=== PATIENT | male | born 1935 | race Caucasian/White ===

== ENCOUNTER 2017-12-03 20:53 | Emergency (ER) | payer OTHER, MEDICARE ==
--- OUTSIDE RECORDS SUMMARY | 2017-12-03 20:56 | XMS REPORT | Clinical Summary ---
:1935 Author Organization [facility] Address [address] [place] [address] Phone Care Team Providers Name Role Phone Unavailable Primary Care Provider Unavailable Allergies Active Allergy Reactions Severity Noted Date Comments Hydromorphone 02/03/2017 Latex 02/03/2017 Penicillins 02/02/2017 Rifampin 02/03/2017 Sulfa (Sulfonamide Antibiotics) 02/03/2017 Current Medications Prescription Sig. Disp. Refills Start Date End Date Status citalopram (CELEXA) Take 20 mg by Active 20 MG tablet mouth every morning. mirtazapine Take 30 mg by Active (REMERON) 30 MG mouth tablet nightly. predniSONE Take 5 mg by Active (DELTASONE) 5 MG mouth 3 tablet (three) times daily. LORazepam (ATIVAN) Take 1 mg by Active 1 MG tablet mouth nightly. ferrous sulfate 325 Take 325 mg Active (65 FE) MG tablet by mouth daily with breakfast. metoprolol Take 1 tablet 60 tablet 0 02/05/2017 02/05/2018 Active (TOPROL-XL) 25 MG (25 mg total) 24 hr tablet by mouth 2 (two) times daily. aspirin 81 MG EC Take 1 tablet 30 tablet 0 02/05/2017 02/05/2018 Active tablet (81 mg total) by mouth daily. atorvastatin Take 1 tablet 30 tablet 0 02/05/2017 02/05/2018 Active (LIPITOR) 80 MG (80 mg total) tablet by mouth daily. lisinopril Take 1 tablet 30 tablet 0 02/05/2017 02/05/2018 Active (PRINIVIL,ZESTRIL) (5 mg total) 5 MG tablet by mouth daily. atenolol (TENORMIN) Take 25 mg by 02/05/2017 Discontinued 25 MG tablet mouth every morning. ticagrelor Take 1 tablet 60 tablet 1 02/05/2017 03/07/2017 (BRILINTA) 90 mg (90 mg total) Tab tablet by mouth 2 (two) times daily for 30 days. famotidine (PEPCID) Take 1 tablet 60 tablet 0 02/05/2017 03/07/2017 20 MG tablet (20 mg total) by mouth 2 (two) times daily for 30 days. 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 ([facility]) History of lower GI bleeding 02/04/2017 Diverticulosis of large intestine 02/04/2017 PMR (polymyalgia rheumatica) ([facility]) 02/04/2017 ST elevation [place] (STEMI) ([facility]) 02/02/2017 STEMI (ST elevation myocardial infarction) ([facility]) 02/02/2017 Encounters Date Type Specialty Care Team Description 02/02/2017 - Hospital Encounter Cardiology Carter Monterroso, ST elevation 02/05/2017 myocardial Claudio, Mayank infarction (STEMI), Mohsen unspecified artery ([facility]) (Primary Dx);ST elevation myocardial infarction involving left anterior descending (LAD) coronary artery ([facility]);Chest pain, unspecified type;SOB (shortness of breath);Coronary artery disease involving cher-ae heights heart, angina presence unspecified, unspecified vessel or lesion type;EKG abnormalities;ACS (acute coronary syndrome) ([facility]);Essential hypertension 02/02/2017 Orders Only General Internal Medicine 02/02/2017 Procedure Pass 02/02/2017 Surgery Carter Monterroso L CATH & PCI MD after 12/02/2016 Immunizations Name Dates Previously Given Next Due Pneumococcal Polysaccharide (Pneumovax) 02/03/2017 Social History Tobacco Use Types Packs/Day Years Used Date Never Assessed Sex Assigned at Date Recorded Not on file Last Filed Vital Signs Vital Sign Reading Time Taken Blood Pressure 126/60 02/05/2017 3:27 PM CDT Pulse 72 02/05/2017 3:27 PM CDT Temperature 36.8 C (98.2 F) 02/05/2017 3:27 PM CDT Respiratory Rate 18 02/05/2017 3:27 PM CDT Oxygen Saturation 95% 02/05/2017 3:27 PM CDT Inhaled Oxygen Concentration - - Weight 68.8 kg (151 lb 9.6 oz) 02/05/2017 7:13 AM CDT Height 172.7 cm (5' 8") 02/03/2017 3:45 PM CDT Body Mass Index 23.05 02/05/2017 7:13 AM CDT Plan of Treatment Not on file Implants Implanted Type Area Poultry Service Technician Device Identifier Expiration Model / Date Serial / Lot Synergy Stents- N/A: Bio[employer]one Therapeutic [id number] 06/05/2017 [id number] / Implanted: Qty: 1 on 02/02/2017 by Carter Monterroso MD Coronar Coronary [employer]ENTIFIC / y [id number] Synergy Stents- N/A: BioAxone Therapeutic [id number] 08/18/2017 [id number] / Implanted: Qty: 1 on 02/02/2017 by Carter Monterroso MD Coronar Coron[employer] / y [id number] Procedures Procedure Name Priority Date/Time Associated Diagnosis Comments L CATH & PCI 02/02/2017 3:10 PM CDT STEMI after 12/02/2016 Results VASCULAR DIAGRAM -SCAN (03/07/2017 1:20 PM)Only the most recent of2 resultswithin the time period is included.EKG-SCANNED (02/06/2017 11:37 AM) CARDIAC CATH REPORT - SCAN (02/06/2017 11:37 AM)RHYTHM STRIP - SCAN (02/06/2017 11:37 AM)CBC with platelet count + automated diff (02/05/2017 4:24 AM)Only the most recent of2 resultswithin the time period is included. Component Value Ref Range WBC 10.5 (H) 4.0 - 10.0 K/L RBC 4.32 4.20 - 5.80 M/L Hemoglobin 14.5 13.0 - 16.8 GM/DL Hematocrit 43.4 40.0 - 50.0 % MCV 100.0 (H) 82.0 - 98.0 fL MCH 33.6 (H) 27.0 - 33.0 pg MCHC 33.5 32.0 - 36.0 GM/DL RDW 12.7 10.3 - 14.2 % Platelets 185 150 - 430 K/CU MM MPV 6.4 (L) 6.5 - 10.5 fL nRBC 0 0 - 0 /100 WBC % Neutros 58 % % Lymphs 28 % % Monos 12 % % Eos 2 % % Baso 0 % # Neutros 6.11 1.80 - 8.00 K/L # Lymphs 2.89 1.48 - 4.50 K/L # Monos 1.22 0.00 - 1.30 K/L # Eos 0.22 0.00 - 0.50 K/L # Baso 0.05 0.00 - 0.20 K/L Specimen Performing Laboratory Blood - Arm, Right [address] [address] Narrative 0.00 Troponin I (02/05/2017 4:24 AM)Only the most recent of5 resultswithin the time period is included. Component Value Ref Range Troponin I 6.36 (HH) 0.00 - 0.03 ng/mL Specimen Performing Laboratory Blood - Arm, Right [address] [address] Narrative Effective 06/06/2014: Reference Range Change New: 0.00-0.03 Previous 0.00-0.15 Troponin I (TnI) levels must be interpreted in the context of the presenting symptoms and the clinical findings. Elevated TnI levels indicate myocardial damage, but are not specific for ischemic heart disease. Elevated TnI levels are seen in patients with other cardiac conditions (including myocarditis and congestive heart failure), and slight TnI elevations occur in patients with other conditions, including sepsis, renal failure, acidosis, acute neurological disease, and persistent tachyarrhythmia. CBC with platelet count + automated diff (02/05/2017 4:24 AM)Only the most recent of2 resultswithin the time period is included. Specimen Performing Laboratory Blood Narrative The following orders were created for panel order CBC with platelet count + automated diff. Procedure Abnormality Status --------- ------ CBC with platelet count ...[[id number]]AbnormalFinal result Please view results for these tests on the individual orders. Basic Metabolic Panel (02/05/2017 4:24 AM)Only the most recent of2 resultswithin the time period is included. Component Value Ref Range Sodium 138 136 - 145 meq/L Potassium 3.6 3.5 - 5.1 meq/L Chloride 106 98 - 107 meq/L CO2 23 22 - 29 meq/L BUN 14 7 - 21 mg/dL Creatinine 0.96 0.57 - 1.25 mg/dL Glucose 83 70 - 105 mg/dL Calcium 9.1 8.4 - 10.2 mg/dL EGFR 75Comment: ESTIMATED GFR IS NOT ACCURATE mL/min/1.73 sq m CREATININE CLEARANCE IN PREDICTING GLOMERULAR FILTRATION RATE. ESTIMATED GFR IS NOT APPLICABLE FOR DIALYSIS PATIENTS. Specimen Performing Laboratory Blood - Arm, Right [facility] [address] [address] PERIPHERAL VASCULAR REPORT - SCAN (02/03/2017 3:20 PM)Arterial doppler leg, right (02/03/2017 1:05 PM) Component Value Ref Range Ejection Fraction Specimen Performing Laboratory [facility] ECHO HEARTLAB MKCKESSON CPACS Impressions Right Impression 1. There is no pseudoaneurysm visualized. 2. There is no hematoma visualized. 3. There is no venous obstruction or arteriovenous fistula visualized. 4. The common femoral artery flow is triphasic with a velocity of 98/13 cm/sec. (within normal range). Conclusions Summary Duplex imaging of the right groin area was performed. The vessels were adequately visualized. There was no evidence of a pseudoaneurysm, venous obstruction or arteriovenous fistula in the right groin area. Signature Velocities are measured in cm/s ; Diameters are measured in cm Narrative [facility] - Pseudoaneurysm Survey Demographics Patient Name Catrina PAGAN of Study 02/03/2017 [id number] Age 81 Visit Number [id number] GenderMale Accession Number [id number] Date of 1935 Maxwell Monterroso MD Room Number 6107 Physician SonographerGregorio V. Taty Ordoñez MD, RVSPsician RPVI Procedure Type of Study: Pseudoaneurysm: PSEUDOANEURYSM, GROIN DOPPLER RIGHT. Indications for Study:Pseudoaneurysm. Patient Status:Routine. Study Location:Portable. Technical Quality:Adequate visualization. Risk Factors History of Disease + +----+ + !Diagnosis!Date!Comments ! + +----+ + !History/Risk !!Recent procedure: S/P Heart catheterization via right! !Factors: !!groin 02/02/17, HTN, CAD, Prior LCx stent placement,! ! !!STEMI, HTN ! + +----+ + Procedure Note Interface, External Ris In - 02/03/2017 2:48 PM CDT [facility] - Pseudoaneurysm Survey Demographics Patient Name FRANCISCO PAGAN Date of Study 02/03/2017 Age 81 Visit Number [id number] Gender Male Accession Number [id number] Date of 1935 Referring Carter Monterroso MD Room Number 6107 Physician Press Brake Operator Venu Posey Interpreting Fabrice Ordoñez MD, RVS Physician RPVI Procedure Type of Study: Pseudoaneurysm: PSEUDOANEURYSM, GROIN DOPPLER RIGHT. Indications for Study:Pseudoaneurysm. Patient Status:Routine. Study Location:Portable. Technical Quality:Adequate visualization. Risk Factors History of Disease + +----+ + !Diagnosis !Date!Comments ! + +----+ + !History/Risk ! !Recent procedure: S/P Heart catheterization via right! !Factors: ! !groin 02/02/17, HTN, CAD, Prior LCx stent placement, ! ! ! !STEMI, HTN ! + +----+ + Impressions Right Impression 1. There is no pseudoaneurysm visualized. 2. There is no hematoma visualized. 3. There is no venous obstruction or arteriovenous fistula visualized. 4. The common femoral artery flow is triphasic with a velocity of 98/13 cm/sec. (within normal range). Conclusions Summary Duplex imaging of the right groin area was performed. The vessels were adequately visualized. There was no evidence of a pseudoaneurysm, venous obstruction or arteriovenous fistula in the right groin area. Signature Velocities are measured in cm/s ; Diameters are measured in cm ECG 12 lead (02/03/2017 6:30 AM)Only the most recent of3 resultswithin the time period is included. Specimen Performing Laboratory GE MUSE Narrative Ventricular Rate 72 BPM Atrial Rate 72 BPM P-R Interval 152 ms QRS Duration 84 ms Q-T Interval 372 ms QTC Calculation(Bazett) 407 ms P [place] 63 degrees R [place] 7 degrees T [place] 68 degrees Sinus rhythm with Premature atrial complexes ST elevation, consider early repolarization Borderline ECG When compared with ECG of 02-FEB-2017 17:03, Premature atrial complexes are now Present Confirmed by Dennis RAMIREZ BASANT ([id number]) on 02/03/2017 2:04:55 PM Procedure Note Interface, External Ris In - 02/03/2017 2:04 PM CDT Ventricular Rate 72 BPM Atrial Rate 72 BPM P-R Interval 152 ms QRS Duration 84 ms Q-T Interval 372 ms QTC Calculation(Bazett) 407 ms P [place] 63 degrees R [place] 7 degrees T [place] 68 degrees Sinus rhythm with Premature atrial complexes ST elevation, consider early repolarization Borderline ECG When compared with ECG of 02-FEB-2017 17:03, Premature atrial complexes are now Present Confirmed by Dennis RAMIREZ BASANT ([id number]) on 02/03/2017 2:04:55 PM CBC (Hemogram only) (02/03/2017 5:51 AM) Component Value Ref Range WBC 8.9 4.0 - 10.0 K/L RBC 4.01 (L) 4.20 - 5.80 M/L Hemoglobin 13.1 13.0 - 16.8 GM/DL Hematocrit 40.1 40.0 - 50.0 % MCV 99.9 (H) 82.0 - 98.0 fL MCH 32.7 27.0 - 33.0 pg MCHC 32.7 32.0 - 36.0 GM/DL RDW 12.7 10.3 - 14.2 % Platelets 167 150 - 430 K/CU MM MPV 6.1 (L) 6.5 - 10.5 fL nRBC 0 0 - 0 /100 WBC Specimen Performing Laboratory Blood [address] [address] Narrative 0.00 Hemoglobin A1c (02/03/2017 5:51 AM) Component Value Ref Range Hemoglobin A1C 5.7 4.3 - 6.1 % Specimen Performing Laboratory Blood [address] [address] Lipid panel (02/03/2017 5:51 AM)Only the most recent of2 resultswithin the time period is included. Component Value Ref Range Triglycerides 283 mg/dL Cholesterol 198 mg/dL HDL 44 mg/dL LDL Calculated 97 mg/dL Specimen Performing Laboratory Blood [address] [address] Narrative Triglyceride Reference Range: Low Risk <150 Ugcontdyqx802-364 High Risk 200-499 Very High Risk>=500 Cholesterol Reference Range: Low Risk <200 Wxjdqaoyam454-711 High Risk>240 HDL Cholesterol Reference Range: Low Risk >=60 High Risk <40 LDL Cholesterol Reference Range: Optimal<100 Near Xgiamry731-254 Relhfsgoas189-630 Cetw229-349 Very High >=190 XR chest 1 view portable / bedside (02/02/2017 9:03 PM) Specimen Performing Laboratory GE RIS Narrative FINAL REPORT Chest One view: Reason for exam: STEMI Comparison Study: None Discussion: The heart size and pulmonary vascularity are within normal limits. The lungs are clear. The bones are unremarkable. Impression: Normal portable chest x-ray. Signed: Steven Alegre MD Report Verified Date/Time:02/02/2017 21:29:06 Reading Location: [facility] C013 Consult Reading Room Procedure Note Interface, External Ris In - 02/02/2017 9:31 PM CDT FINAL REPORT Chest One view: Reason for exam: STEMI Comparison Study: None Discussion: The heart size and pulmonary vascularity are within normal limits. The lungs are clear. The bones are unremarkable. Impression: Normal portable chest x-ray. Signed: Steven Alegre MD Report Verified Date/Time: 02/02/2017 21:29:06 Reading Location: [facility] [id number] Consult Reading Room ACTIVATED CLOTTING TIME (02/02/2017 7:55 PM)Only the most recent of3 resultswithin the time period is included. Component Value Ref Range Activated Clotting Time 142Comment: TESTED AT [facility] [address] [place] [address] sec [address] Specimen Performing Laboratory Blood [facility] [address] [place] [address] Transthoracic 2D echo w/ doppler (cw/pw/color) (02/02/2017 6:40 PM) Component Value Ref Range Ejection Fraction LV EF BP 40.6 % Specimen Performing Laboratory DIGISONICS Narrative Echocardiography Laboratory [address] [place] [address] Voice:[phone] Transthoracic Echocardiogram Pat.Name:FRANCISCO PAGAN.ID:[id number] .Date: 02/02/2017 Refer.MD:BRUNA CARDOSO Exam Time: 6:40:00 PMStudy Type:Echo Complete Height:67inWeight: 152lb BSA: 1.8 r5CDLFsz:1935,81Y Sex: MALEBP:125/70 HR:75 bpm Reason for Study:Acute Chest Pain / Suspected CAD Procedures:2D ECHO W/ DOPPLER (CW/PW/COLOR) SUMMARY: Technically difficult exam. LV endocardium is well visualized withIV contrast. 1. Left ventricular chamber size (by vol index) is normal. No evidence of LV hypertrophy. The following segment(s) appear severely hypokinetic: basal to apical anterior and anteroseptum, inferoapical wall, and the apex. The following segment(s) appear mildly hypokinetic: inferior wall. LVEF by quantitative assessment is xuym-tw-zhjenltsaa reduced (40%). Grade 1 diastolic dysfunction (impaired relaxation and low-normal LA pressure). 2. The right ventricular chamber size and systolic function are within normal limits. 3. LA size is normal. RA cavity size is normal. 4. A trace of tricuspid regurgitation. Unable to estimate peak systolic PA pressure; inadequate TR velocity signal. The estimated RA pressure by IVC dynamics 0-5 mm Hg. 5. No pericardial effusion is visualized. No prior exam available for comparison. FINDINGS: LV: Left ventricular chamber size (by vol index) is normal. No evidenceof LV hypertrophy. LVEF by quantitative assessment ibvopx-tn-mwlmhtnngo reduced (40%). Grade 1 diastolic dysfunction(impaired relaxation and low-normal LA pressure).The following segment(s) appear mildly hypokinetic:inferior wall. LV endocardium is well visualizedwithIV contrast. The following segment(s) appearseverely hypokinetic: basal to apical anterior and anteroseptum,inferoapical wall, and the apex. The other segmentscontract normally. LA: LA size is normal. RV: The right ventricular chamber size and systolic function are withinnormal limits. RA: RA cavity size is normal. AV: No evidence of aortic regurgitation. No evidence of aortic stenosis.AoV cusp mobility is mildly decreased. Moderate AoVcusp calcification. Aortic annulus appears calcified. MV: Mild mitral regurgitation. Mild MV leaflet thickening. TV: Normal TV structure and function. A trace of tricuspid regurgitation.Unable to estimate peak systolic PA pressure;inadequate TR velocity signal. PV: Normal PV structure and function by limited views and Doppler. AO: Aortic root size (Sinus of Valsalva diameter) is normal. Pericard: No pericardial effusion is visualized. Systemic Veins: The inferior vena cava is not well visualized. The estimatedRA pressure by IVC dynamics 0-5 mmHg. Comparison: No prior exam available for comparison. Quality:Technically difficult exam. MEASUREMENTS: 2D LA Sng Plane LA Vol46.8 mlIndex 26 ml/m2 LA Area 18.4 cm2(8.8-23.4) Parasternal Long [place] Ao An 2.02 cm (1.4-2.6) LV%fs 19 %(25-46)* Ao Rtd3.08 cmLVPWd0.739 cm IVSd0.73 cm LA Ds 4.06 cm (2.3-3.9)* LVIDd 4.87 cm (4.3-5.1) LV Wmn 0.735 cm LVIDs 3.94 cm (2-4) LV EF Biplane LVEDV BP73.8 xuSurta31 ml/m2 LVESV BP43.8 mlHR65 bpm LV SV BP30 ml DOPPLER AV LVOT For Flow LVOTpkVel 72.2 cm/s (70-110) LVOT SV 64.3 ml LVOT VTI20.5 cmLVOT CO 5.07 l/min LVOTpkPG2.09 mmHgLVOT Area 3.14 cm2 LVOTmnPG1.18 juRkCC74 bpm Aortic Valve AV DI 1.08 SVi (LVOT)35.7 AV AV For Flow/KODY AV pkVel96.6 cm/s (100-170)* AV AC/ET 0.303 AV mnVel63.3 cm/sAVpkAcRt 1485 cm/s2 AV pkPG 3.73 mmHgAV DeRt 324 cm/s2 AV mnPG 1.91 mmHgArea (VTI) 3.4 cm2(3-5) AV VTI18.9 cmArea (Gal) 2.35 cm2(3-5)* AV ET298 msecAV AC 90 msec (83-118) Left Ventricle MV pkE48.2 cm/s (60-130)* AnnSeptEm 6.46 cm/s AnnLatEm7.02 cm/sAnnSeptE/Em 7.46 AnnLatE/Em6.87 Avg E/Em7.15 MV E/A Ratio MV pkE48.2 cm/s (60-130)* MV E/A 0.643 MV pkA74.9 cm/s Mitral Valve MV E/A 0.643 MV E' Mn6.74 cm/s Atria LA P10.8 mmHg Signed 02/03/2017 12:19 PM Bety Anthony, M.D. Procedure Note Interface, External Ris In - 02/03/2017 12:21 PM CDT Echocardiography Laboratory [address] [place] [address] Voice: [phone] Transthoracic Echocardiogram Pat.Name: FRANCISCO PAGAN Pat.ID: [id number] St.Date: 02/02/2017 Refer.MD: BRUNA CARDOSO Exam Time: 6:40:00 PM Study Type:Echo Complete Height: 67in Weight: 152lb BSA: 1.8 m2 Age: 9 1935,81Y Sex: MALE BP: 125/70 HR: 75 bpm Reason for Study:Acute Chest Pain / Suspected CAD Procedures:2D ECHO W/ DOPPLER (CW/PW/COLOR) SUMMARY: Technically difficult exam. LV endocardium is well visualized with IV contrast. 1. Left ventricular chamber size (by vol index) is normal. No evidence of LV hypertrophy. The following segment(s) appear severely hypokinetic: basal to apical anterior and anteroseptum, inferoapical wall, and the apex. The following segment(s) appear mildly hypokinetic: inferior wall. LVEF by quantitative assessment is ladz-px-dykvyqsyla reduced (40%). Grade 1 diastolic dysfunction (impaired relaxation and low-normal LA pressure). 2. The right ventricular chamber size and systolic function are within normal limits. 3. LA size is normal. RA cavity size is normal. 4. A trace of tricuspid regurgitation. Unable to estimate peak systolic PA pressure; inadequate TR velocity signal. The estimated RA pressure by IVC dynamics 0-5 mm Hg. 5. No pericardial effusion is visualized. No prior exam available for comparison. FINDINGS: LV: Left ventricular chamber size (by vol index) is normal. No evidence of LV hypertrophy. LVEF by quantitative assessment is wtws-vc-isnqmnavrq reduced (40%). Grade 1 diastolic dysfunction (impaired relaxation and low-normal LA pressure). The following segment(s) appear mildly hypokinetic: inferior wall. LV endocardium is well visualized with IV contrast. The following segment(s) appear severely hypokinetic: basal to apical anterior and anteroseptum, inferoapical wall, and the apex. The other segments contract normally. LA: LA size is normal. RV: The right ventricular chamber size and systolic function are within normal limits. RA: RA cavity size is normal. AV: No evidence of aortic regurgitation. No evidence of aortic stenosis. AoV cusp mobility is mildly decreased. Moderate AoV cusp calcification. Aortic annulus appears calcified. MV: Mild mitral regurgitation. Mild MV leaflet thickening. TV: Normal TV structure and function. A trace of tricuspid regurgitation. Unable to estimate peak systolic PA pressure; inadequate TR velocity signal. PV: Normal PV structure and function by limited views and Doppler. AO: Aortic root size (Sinus of Valsalva diameter) is normal. Pericard: No pericardial effusion is visualized. Systemic Veins: The inferior vena cava is not well visualized. The estimated RA pressure by IVC dynamics 0-5 mmHg. Comparison: No prior exam available for comparison. Quality: Technically difficult exam. MEASUREMENTS: 2D LA Sng Plane LA Vol 46.8 ml Index 26 ml/m2 LA Area 18.4 cm2 (8.8-23.4) Parasternal Long [place] Ao An 2.02 cm (1.4-2.6) LV%fs 19 % (25-46)* Ao Rtd 3.08 cm LVPWd 0.739 cm IVSd 0.73 cm LA Ds 4.06 cm (2.3-3.9)* LVIDd 4.87 cm (4.3-5.1) LV Wmn 0.735 cm LVIDs 3.94 cm (2-4) LV EF Biplane LVEDV BP 73.8 ml Index 41 ml/m2 LVESV BP 43.8 ml HR 65 bpm LV SV BP 30 ml DOPPLER AV LVOT For Flow LVOTpkVel 72.2 cm/s (70-110) LVOT SV 64.3 ml LVOT VTI 20.5 cm LVOT CO 5.07 l/min LVOTpkPG 2.09 mmHg LVOT Area 3.14 cm2 LVOTmnPG 1.18 mmHg HR 79 bpm Aortic Valve AV DI 1.08 SVi (LVOT) 35.7 AV AV For Flow/KODY AV pkVel 96.6 cm/s (100-170)* AV AC/ET 0.303 AV mnVel 63.3 cm/s AVpkAcRt 1485 cm/s2 AV pkPG 3.73 mmHg AV DeRt 324 cm/s2 AV mnPG 1.91 mmHg Area (VTI) 3.4 cm2 (3-5) AV VTI 18.9 cm Area (Gal) 2.35 cm2 (3-5)* AV ET 298 msec AV AC 90 msec (83-118) Left Ventricle MV pkE 48.2 cm/s (60-130)* AnnSeptEm 6.46 cm/s AnnLatEm 7.02 cm/s AnnSeptE/Em 7.46 AnnLatE/Em 6.87 Avg E/Em 7.15 MV E/A Ratio MV pkE 48.2 cm/s (60-130)* MV E/A 0.643 MV pkA 74.9 cm/s Mitral Valve MV E/A 0.643 MV E' Mn 6.74 cm/s Atria LA P 10.8 mmHg Signed 02/03/2017 12:19 PM Bety Ramirez M.D. PT/aPTT (02/02/2017 4:27 PM) Component Value Ref Range Protime 15.1 (H) 11.7 - 14.7 seconds INR 1.2 <=5.9 PTT >200.0 (HH) 22.5 - 36.0 seconds Specimen Performing Laboratory Blood [facility] [address] [address] Narrative RECOMMENDED COUMADIN/WARFARIN INR THERAPY RANGES STANDARD DOSE: 2.0 - 3.0 Includes: PROPHYLAXIS for venous thrombosis, systemic embolization; TREATMENT for venous thrombosis and/or pulmonary embolus. HIGH RISK: Target INR is 2.5-3.5 for patients with mechanical heart valves. BUN and Creatinine (02/02/2017 4:27 PM) Component Value Ref Range BUN 14 7 - 21 mg/dL Creatinine 0.95 0.57 - 1.25 mg/dL EGFR 76Comment: ESTIMATED GFR IS NOT ACCURATE mL/min/1.73 sq m CREATININE CLEARANCE IN PREDICTING GLOMERULAR FILTRATION RATE. ESTIMATED GFR IS NOT APPLICABLE FOR DIALYSIS PATIENTS. Specimen Performing Laboratory Blood [address] [address] B-type Natriuretic Factor (BNP) (02/02/2017 4:27 PM) Component Value Ref Range BNP 139 (H) 0 - 100 pg/mL Specimen Performing Laboratory Blood [address] [address] Glucose (02/02/2017 4:27 PM) Component Value Ref Range Glucose 114 (H) 70 - 105 mg/dL Specimen Performing Laboratory Blood [address] [address] Narrative Effective 06/06/2014: Reference Range Change-Adult only New: 70-105 Previous: 70-110 Creatine Kinase (CK), Total and MB (02/02/2017 4:27 PM) Component Value Ref Range Total CK 74 29 - 200 U/L CK-MB 6.2 0.0 - 6.6 ng/mL MB Relative Index 8.4 % Specimen Performing Laboratory Blood [address] [address] Narrative Effective 06/06/2014: CK-MB Reference Range Change New: 0.0-6.6Previous: 0.0-4.9 CK-MB Reference Range: <6.7Normal 6.7-10.0Borderline >10.0 Abnormal Hepatic function panel (02/02/2017 4:27 PM) Component Value Ref Range Protein, Total 5.4 (L) 6.0 - 8.3 gm/dL Albumin 3.3 (L) 3.5 - 5.0 g/dL Total Bilirubin 0.8 0.2 - 1.2 mg/dL Bilirubin, Direct 0.3 0.1 - 0.5 mg/dL Alkaline Phosphatase 40 40 - 150 U/L AST 19 5 - 34 U/L ALT 9 6 - 55 U/L Specimen Performing Laboratory Blood [address] [address] Electrolytes (02/02/2017 4:27 PM) Component Value Ref Range Sodium 140 136 - 145 meq/L Potassium 2.8 (L) 3.5 - 5.1 meq/L Chloride 105 98 - 107 meq/L CO2 26 22 - 29 meq/L Specimen Performing Laboratory Blood [address] [address] after 12/02/2016 Advance Directives Patient has advance directives. For more information, please contact:[address] [phone]
--- OUTSIDE RECORDS SUMMARY | 2017-12-03 20:57 | XMS REPORT ---
:1935 [facility] Address [address] [place] [address] Care Team Providers Name Role Phone FAUSTO AGUILAR Unavailable Unavailable Problems This patient has no known problems. Allergies, Adverse Reactions, Alerts This patient has no known allergies or adverse reactions. Medications This patient has no known medications. Results Test Description Test Time Test Comments Text Results Atomic Results Result Comments CBC W/PLT COUNT & AUTO DIFFERENTIAL 2017-02-05 06:06:00 Test Item Value Reference Range Comments WHITE BLOOD CELL COUNT (BEAKER) (test cfke=040) 10.5 K/ L 4.0-10.0 RED BLOOD CELL COUNT (BEAKER) (test kmyw=773) 4.32 M/ L 4.20-5.80 HEMOGLOBIN (BEAKER) (test xdmb=551) 14.5 GM/DL 13.0-16.8 HEMATOCRIT (BEAKER) (test fftm=347) 43.4 % 40.0-50.0 MEAN CORPUSCULAR VOLUME (BEAKER) (test rrzo=228) 100.0 fL 82.0-98.0 MEAN CORPUSCULAR HEMOGLOBIN (BEAKER) (test mcuv=695) 33.6 pg 27.0-33.0 MEAN CORPUSCULAR HEMOGLOBIN CONC (BEAKER) (test nloz=124) 33.5 GM/DL 32.0- 36.0 RED CELL DISTRIBUTION WIDTH (BEAKER) (test cqqx=333) 12.7 % 10.3-14.2 PLATELET COUNT (BEAKER) (test cyxn=523) 185 K/CU MM 150-430 MEAN PLATELET VOLUME (BEAKER) (test ffuh=045) 6.4 fL 6.5-10.5 NUCLEATED RED BLOOD CELLS (BEAKER) (test ducv=567) 0 /100 WBC 0-0 NEUTROPHILS RELATIVE PERCENT (BEAKER) (test jubl=581) 58 % LYMPHOCYTES RELATIVE PERCENT (BEAKER) (test bogm=744) 28 % MONOCYTES RELATIVE PERCENT (BEAKER) (test esgv=604) 12 % EOSINOPHILS RELATIVE PERCENT (BEAKER) (test sfgv=680) 2 % BASOPHILS RELATIVE PERCENT (BEAKER) (test ddel=857) 0 % NEUTROPHILS ABSOLUTE COUNT (BEAKER) (test yevs=170) 6.11 K/ L 1.80-8.00 LYMPHOCYTES ABSOLUTE COUNT (BEAKER) (test bfdf=824) 2.89 K/ L 1.48-4.50 MONOCYTES ABSOLUTE COUNT (BEAKER) (test vbay=390) 1.22 K/ L 0.00-1.30 EOSINOPHILS ABSOLUTE COUNT (BEAKER) (test nxrd=989) 0.22 K/ L 0.00-0.50 BASOPHILS ABSOLUTE COUNT (BEAKER) (test nbsd=180) 0.05 K/ L 0.00-0.20 0.00BASIC METABOLIC [id number] 05:43:00 Test Item Value Reference Range Comments SODIUM (BEAKER) (test 138 meq/L 136-145 xlth=044) POTASSIUM (BEAKER) (test 3.6 meq/L 3.5-5.1 pvwu=187) CHLORIDE (BEAKER) (test 106 meq/L 98-107 sxol=700) CO2 (BEAKER) (test 23 meq/L 22-29 hfjm=708) BLOOD UREA NITROGEN 14 mg/dL 7-21 (BEAKER) (test eljr=977) CREATININE (BEAKER) (test 0.96 mg/dL 0.57-1.25 abgu=375) GLUCOSE RANDOM (BEAKER) 83 mg/dL 70-105 (test abse=566) CALCIUM (BEAKER) (test 9.1 mg/dL 8.4-10.2 uxei=729) EGFR (BEAKER) (test 75 mL/min/1.73 sq m ESTIMATED GFR IS NOT lpbo=6826) ACCURATE CREATININE CLEARANCE IN PREDICTING GLOMERULAR FILTRATION RATE. ESTIMATED GFR IS NOT APPLICABLE FOR DIALYSIS PATIENTS. TROPONIN [id number] 05:34:00 Test Item Value Reference Range Comments TROPONIN I (BEAKER) (test jasx=921) 6.36 ng/mL 0.00-0.03 Effective 06/06/2014: Reference Range ChangeNew: 0.00-0.03 Previous 0.00- 0.15Troponin I (TnI) levels must be interpreted in the context of the presenting symptoms and the clinical findings. Elevated TnI levels indicate myocardial damage, but are not specific for ischemic heart disease. Elevated TnI levels are seen in patients with other cardiac conditions (including myocarditis and congestive heartfailure), and slight TnI elevations occur in patients with other conditions, including sepsis, renalfailure, acidosis, acute neurological disease, and persistent tachyarrhythmia.TROPONIN [id number] 04:58: 00 Test Item Value Reference Range Comments TROPONIN I (KARELY) (test kjzi=149) 9.17 ng/mL 0.00-0.03 Effective 06/06/2014: Reference Range ChangeNew: 0.00-0.03 Previous 0.00- 0.15Troponin I (TnI) levels must be interpreted in the context of the presenting symptoms and the clinical findings. Elevated TnI levels indicate myocardial damage, but are not specific for ischemic heart disease. Elevated TnI levels are seen in patients with other cardiac conditions (including myocarditis and congestive heartfailure), and slight TnI elevations occur in patients with other conditions, including sepsis, renalfailure, acidosis, acute neurological disease, and persistent tachyarrhythmia.HEMOGLOBIN [id number] 13 :04:00 Test Item Value Reference Range Comments HEMOGLOBIN A1C (KARELY) (test wwzr=791) 5.7 % 4.3-6.1 TROPONIN [id number] 11:52:00 Test Item Value Reference Range Comments TROPONIN I (KARELY) (test mesv=031) 17.09 ng/mL 0.00-0.03 Effective 06/06/2014: Reference Range ChangeNew: 0.00-0.03 Previous 0.00- 0.15Troponin I (TnI) levels must be interpreted in the context of the presenting symptoms and the clinical findings. Elevated TnI levels indicate myocardial damage, but are not specific for ischemic heart disease. Elevated TnI levels are seen in patients with other cardiac conditions (including myocarditis and congestive heartfailure), and slight TnI elevations occur in patients with other conditions, including sepsis, renalfailure, acidosis, acute neurological disease, and persistent tachyarrhythmia.TROPONIN [id number] 06:44: 00 Test Item Value Reference Range Comments TROPONIN I (BEAKER) (test rtjr=230) 24.01 ng/mL 0.00-0.03 Effective 06/06/2014: Reference Range ChangeNew: 0.00-0.03 Previous 0.00- 0.15Troponin I (TnI) levels must be interpreted in the context of the presenting symptoms and the clinical findings. Elevated TnI levels indicate myocardial damage, but are not specific for ischemic heart disease. Elevated TnI levels are seen in patients with other cardiac conditions (including myocarditis and congestive heartfailure), and slight TnI elevations occur in patients with other conditions, including sepsis, renalfailure, acidosis, acute neurological disease, and persistent tachyarrhythmia.LIPID [id number] 06:39 :00 Test Item Value Reference Range Comments TRIGLYCERIDES (BEAKER) (test sdrz=956) 283 mg/dL CHOLESTEROL (BEAKER) (test kvdj=459) 198 mg/dL HDL CHOLESTEROL (BEAKER) (test wvah=850) 44 mg/dL LDL CHOLESTEROL CALCULATED (BEAKER) (test 97 mg/dL kgfi=701) Triglyceride Reference Range: Low Risk <150 Borderline 150- 199 High Risk 200-499 Very High Risk >=500Cholesterol Reference Range: Low Risk <200 Borderline 200-239 High Risk > 240HDL Cholesterol Reference Range: Low Risk >=60 High Risk <40LDL Cholesterol Reference Range: Optimal <100 Near Optimal 100-129 Borderline 130-159 High 160-189 Very High >=190BASIC METABOLIC [id number] 06:39:00 Test Item Value Reference Range Comments SODIUM (BEAKER) (test 139 meq/L 136-145 yuln=438) POTASSIUM (BEAKER) (test 4.4 meq/L 3.5-5.1 sixx=961) CHLORIDE (BEAKER) (test 108 meq/L 98-107 unfz=773) CO2 (BEAKER) (test 25 meq/L 22-29 erts=908) BLOOD UREA NITROGEN 12 mg/dL 7-21 (BEAKER) (test qlii=944) CREATININE (BEAKER) (test 0.80 mg/dL 0.57-1.25 rztr=701) GLUCOSE RANDOM (BEAKER) 99 mg/dL 70-105 (test csyg=409) CALCIUM (BEAKER) (test 8.4 mg/dL 8.4-10.2 doxa=708) EGFR (BEAKER) (test 93 mL/min/1.73 sq m ESTIMATED GFR IS NOT uins=8827) ACCURATE CREATININE CLEARANCE IN PREDICTING GLOMERULAR FILTRATION RATE. ESTIMATED GFR IS NOT APPLICABLE FOR DIALYSIS PATIENTS. CBC (HEMOGRAM ONLY)2017-02-03 06:19:00 Test Item Value Reference Range Comments WHITE BLOOD CELL COUNT (BEAKER) (test lacv=141) 8.9 K/ L 4.0-10.0 RED BLOOD CELL COUNT (BEAKER) (test nmvk=182) 4.01 M/ L 4.20-5.80 HEMOGLOBIN (BEAKER) (test broz=728) 13.1 GM/DL 13.0-16.8 HEMATOCRIT (BEAKER) (test pcqj=940) 40.1 % 40.0-50.0 MEAN CORPUSCULAR VOLUME (BEAKER) (test fbqz=275) 99.9 fL 82.0-98.0 MEAN CORPUSCULAR HEMOGLOBIN (BEAKER) (test 32.7 pg 27.0-33.0 onph=647) MEAN CORPUSCULAR HEMOGLOBIN CONC (BEAKER) (test 32.7 GM/DL 32.0-36.0 oday=665) RED CELL DISTRIBUTION WIDTH (BEAKER) (test 12.7 % 10.3-14.2 asrk=045) PLATELET COUNT (BEAKER) (test saod=805) 167 K/CU MM 150-430 MEAN PLATELET VOLUME (BEAKER) (test kdsb=263) 6.1 fL 6.5-10.5 NUCLEATED RED BLOOD CELLS (BEAKER) (test 0 /100 WBC 0-0 ekhy=199) [id number] 20:02:00 Test Item Value Reference Range Comments ACTIVATED CLOTTING TIME 142 sec TESTED AT [facility] [address] [facility] (BEAKER) (test nyex=851) [facility] [id number] 19:13:00 Test Item Value Reference Range Comments ACTIVATED CLOTTING TIME 153 sec TESTED AT [facility] [address] [facility] (BEAKER) (test asxb=083) [facility] [address] [id number] 17:34:00 Test Item Value Reference Range Comments PROTIME (BEAKER) (test ikbn=393) 15.1 seconds 11.7-14.7 INR (BEAKER) (test gint=242) 1.2 <=5.9 PARTIAL THROMBOPLASTIN TIME (BEAKER) (test > seconds 22.5-36.0 apnr=674) RECOMMENDED COUMADIN/WARFARIN INR THERAPY RANGESSTANDARD DOSE: 2.0 - 3.0 Includes: PROPHYLAXIS forvenous thrombosis, systemic embolization; TREATMENT for venous thrombosis and/or pulmonary embolus.HIGH RISK: Target INR is 2.5-3.5 for patients with mechanical heart valves.B-TYPE NATRIURETIC FACTOR (BNP)2017-01 17:33:00 Test Item Value Reference Range Comments B-TYPE NATRIURETIC PEPTIDE (BEAKER) (test 139 pg/mL 0-100 whvt=396) TROPONIN [id number] 17:30:00 Test Item Value Reference Range Comments TROPONIN I (BEAKER) (test crdx=770) 0.48 ng/mL 0.00-0.03 Effective 06/06/2014: Reference Range ChangeNew: 0.00-0.03 Previous 0.00- 0.15Troponin I (TnI) levels must be interpreted in the context of the presenting symptoms and the clinical findings. Elevated TnI levels indicate myocardial damage, but are not specific for ischemic heart disease. Elevated TnI levels are seen in patients with other cardiac conditions (including myocarditis and congestive heartfailure), and slight TnI elevations occur in patients with other conditions, including sepsis, renalfailure, acidosis, acute neurological disease, and persistent tachyarrhythmia.CBC W/PLT COUNT & AUTO [id number] 17:24:00 Test Item Value Reference Range Comments WHITE BLOOD CELL COUNT (BEAKER) (test lieo=516) 12.6 K/ L 4.0-10.0 RED BLOOD CELL COUNT (BEAKER) (test twqz=543) 3.99 M/ L 4.20-5.80 HEMOGLOBIN (BEAKER) (test nxdy=485) 13.4 GM/DL 13.0-16.8 HEMATOCRIT (BEAKER) (test pyei=312) 39.8 % 40.0-50.0 MEAN CORPUSCULAR VOLUME (BEAKER) (test bivy=041) 99.7 fL 82.0-98.0 MEAN CORPUSCULAR HEMOGLOBIN (BEAKER) (test 33.5 pg 27.0-33.0 jyse=829) MEAN CORPUSCULAR HEMOGLOBIN CONC (BEAKER) (test 33.6 GM/DL 32.0-36.0 rlfj=824) RED CELL DISTRIBUTION WIDTH (BEAKER) (test 12.4 % 10.3-14.2 wzzk=589) PLATELET COUNT (BEAKER) (test havf=584) 175 K/CU MM 150-430 MEAN PLATELET VOLUME (BEAKER) (test boyy=599) 6.2 fL 6.5-10.5 NUCLEATED RED BLOOD CELLS (BEAKER) (test 0 /100 WBC 0-0 ojav=233) NEUTROPHILS RELATIVE PERCENT (BEAKER) (test 69 % mlxc=826) LYMPHOCYTES RELATIVE PERCENT (BEAKER) (test 19 % cygy=083) MONOCYTES RELATIVE PERCENT (BEAKER) (test 11 % asxo=658) EOSINOPHILS RELATIVE PERCENT (BEAKER) (test 1 % vhca=665) BASOPHILS RELATIVE PERCENT (BEAKER) (test 0 % ghja=679) NEUTROPHILS ABSOLUTE COUNT (BEAKER) (test 8.69 K/ L 1.80-8.00 ompz=470) LYMPHOCYTES ABSOLUTE COUNT (BEAKER) (test 2.41 K/ L 1.48-4.50 nupi=635) MONOCYTES ABSOLUTE COUNT (BEAKER) (test 1.33 K/ L 0.00-1.30 ntiq=070) EOSINOPHILS ABSOLUTE COUNT (BEAKER) (test 0.17 K/ L 0.00-0.50 ymsy=015) BASOPHILS ABSOLUTE COUNT (BEAKER) (test 0.03 K/ L 0.00-0.20 gnus=681) CREATINE KINASE (CK), TOTAL AND [id number] 17:19:00 Test Item Value Reference Range Comments CREATINE KINASE TOTAL (BEAKER) (test xtqv=964) 74 U/L 29-200 CREATINE KINASE-MB (BEAKER) (test dges=937) 6.2 ng/mL 0.0-6.6 CREATINE KINASE-MB INDEX (BEAKER) (test jich=315) 8.4 % Effective 06/06/2014: CK-MB Reference Range ChangeNew: 0.0-6.6 Previous: 0.0- 4.9CK-MB Reference Range:<6.7 Normal6.7-10.0 Borderline>10.0 AbnormalLIPID [id number] 17:12:00 Test Item Value Reference Range Comments TRIGLYCERIDES (BEAKER) (test rmdy=642) 198 mg/dL CHOLESTEROL (BEAKER) (test uvvw=386) 211 mg/dL HDL CHOLESTEROL (BEAKER) (test xjek=391) 46 mg/dL LDL CHOLESTEROL CALCULATED (BEAKER) (test 125 mg/dL ogfe=671) Triglyceride Reference Range: Low Risk <150 Borderline 150- 199 High Risk 200-499 Very High Risk >=500Cholesterol Reference Range: Low Risk <200 Borderline 200-239 High Risk > 240HDL Cholesterol Reference Range: Low Risk >=60 High Risk <40LDL Cholesterol Reference Range: Optimal <100 Near Optimal 100-129 Borderline 130-159 High 160-189 Very High >=[id number] 17:12:00 Test Item Value Reference Range Comments SODIUM (BEAKER) (test lxkx=293) 140 meq/L 136-145 POTASSIUM (BEAKER) (test ldve=842) 2.8 meq/L 3.5-5.1 CHLORIDE (BEAKER) (test mgln=730) 105 meq/L 98-107 CO2 (BEAKER) (test pgdc=433) 26 meq/L 22-29 HEPATIC FUNCTION [id number] 17:12:00 Test Item Value Reference Range Comments TOTAL PROTEIN (BEAKER) (test ibea=459) 5.4 gm/dL 6.0-8.3 ALBUMIN (BEAKER) (test mocm=7502) 3.3 g/dL 3.5-5.0 BILIRUBIN TOTAL (BEAKER) (test uvzt=383) 0.8 mg/dL 0.2-1.2 BILIRUBIN DIRECT (BEAKER) (test yvph=894) 0.3 mg/dL 0.1-0.5 ALKALINE PHOSPHATASE (BEAKER) (test bsxc=619) 40 U/L 40-150 AST (SGOT) (BEAKER) (test sngo=854) 19 U/L 5-34 ALT (SGPT) (BEAKER) (test bfwh=313) 9 U/L 6-55 [id number] 17:12:00 Test Item Value Reference Range Comments GLUCOSE RANDOM (BEAKER) (test txlq=575) 114 mg/dL 70-105 Effective 06/06/2014: Reference Range Change-Adult onlyNew: 70-105 Previous : 70-110BUN AND [id number] 17:12:00 Test Item Value Reference Range Comments BLOOD UREA NITROGEN 14 mg/dL 7-21 ([facility]) (test mdvu=302) CREATININE ([facility]) (test 0.95 mg/dL 0.57-1.25 lsnw=332) EGFR ([facility]) (test 76 mL/min/1.73 sq m ESTIMATED GFR IS NOT awbu=2928) ACCURATE CREATININE CLEARANCE IN PREDICTING GLOMERULAR FILTRATION RATE. ESTIMATED GFR IS NOT APPLICABLE FOR DIALYSIS PATIENTS. [id number] 15:58:00 Test Item Value Reference Range Comments ACTIVATED CLOTTING TIME 351 sec TESTED AT [facility] [address] (ROSEANN) (test ylev=275) [facility] [id number]
[2017-12-03] MEDS ORDERED: NA CHLORIDE 0.9% 500 ML ONE (21:53)
[2017-12-03 22:00] LABS: Absolute Lymphocytes (CBC) 0.3 K/uL (0.7-4.9); Absolute Monocytes 0.5 K/uL (0.1-1.3); Absolute Neutrophil 8.5 K/uL (1.8-8.0); Basophils % 0.1 % (0-1.3); Hematocrit 31.7 % (39.6-49.0); Lymphocytes % 3.6 % (15.3-44.8); MCH 32.7 pg (27.0-35.0); MCV 96.6 fL (80-100); MPV 7.1 fL (7.6-11.3); Monocytes % 5.2 % (3.3-12.3); RBC Red Blood Cell Count 3.28 M/uL (4.33-5.43)
[2017-12-03 22:12] LABS: Urine Blood NEGATIVE (NEG); Urine Glucose NEGATIVE (NEG); Urine Protein TRACE (NEG); Urine pH 6.5 (5.0-7.0)
[2017-12-03 22:14] LABS: Protime INR 1.02
[2017-12-03 22:16] LABS: Potassium 3.3 mEq/L (3.6-5.0)
[2017-12-03 22:22] LABS: Bilirubin Direct 0.2 mg/dL (0-0.2); Bilirubin Total 0.7 mg/dL (0.3-1.2); Magnesium 1.9 mg/dL (1.8-2.5); Protein, Total 5.9 g/dL (6.0-8.3)
[2017-12-03 22:23] LABS: CKMB Creatine Kinase MB 2.1 ng/ml (0.3-4.0)
--- NOTE | 2017-12-03 22:30 | RAD REPORT ---
EXAM DESCRIPTION: RAD - Chest Single View - 12/03/2017 10:06 pm CLINICAL HISTORY: Cough and congestion COMPARISON: March 2016 TECHNIQUE: AP portable chest image was obtained 2158 hours . FINDINGS: Lungs are clear. Heart and vasculature are normal. No measurable pleural effusion and no p neumothorax. No gross bony abnormality seen. No acute aortic findings suspected. IMPRESSION: No acute cardiopulmonary process. No significant interval change.
--- NOTE | 2017-12-03 23:17 | ER ---
Nurse's Notes [facility] Name: Francisco Pagan Age: 82 yrs Sex: Male : 1935 Arrival Date: 12/03/2017 Time: 20:55 Bed 5 Private MD: Jose E Horton T Diagnosis: Anxiety disorder, unspecified;Hypokalemia;Weakness Presentation: 12/03 20:58 Presenting complaint: EMS states: Pt has had increased anxiety all day and got worse tl2 about 30 minutes ago. Pt given 1 mg Ativan per EMS and pt states anxiety has resolved. Pt denies pain or shortness of breath. Pt reports Ativan dose was lowered a couple weeks ago. Transition of care: patient was not received from another setting of care. Onset of symptoms was December 03, 2017. Initial Sepsis Screen: Does the patient meet any 2 criteria? No. Patient's initial sepsis screen is negative. Does the patient have a suspected source of infection? No. Patient's initial sepsis screen is negative. Care prior to arrival: Medication(s) given: Ativan 2 mg IV IV initiated. 20 GA, in the left antecubital area. 20:58 Method Of Arrival: EMS[facility] tl2 20:58 Acuity: LEWIS 4 tl2 Triage Assessment: 21:03 General: Appears in no apparent distress. comfortable, Behavior is calm, cooperative, tl2 appropriate for age. Pain: Denies pain. Neuro: Level of Consciousness is awake, alert, obeys commands, Oriented to person, place, time, situation. Cardiovascular: Denies chest pain. Respiratory: Airway is patent Respiratory effort is even, unlabored, Respiratory pattern is regular, symmetrical. GI: No signs and/or symptoms were reported involving the gastrointestinal system. : No signs and/or symptoms were reported regarding the genitourinary system. Derm: Skin is pink, warm \T\ dry. Historical: - Allergies: 21:03 Latex, Natural Rubber; tl2 21:03 PENICILLINS; tl2 21:03 Rifampin; tl2 21:03 Sulfa (Sulfonamide Antibiotics); tl2 - Home Meds: 21:03 aspirin 81 mg Oral chew 1 tab once daily [Active]; Ativan 0.25 mg Oral once daily tl2 [Active]; citalopram 20 mg tab 1 tab once daily [Active]; prednisone 15 mg Oral tab once daily [Active]; Metoprolol Tartrate Oral [Active]; Abilify oral oral [Active]; Lipitor Oral [Active]; Fish Oil 300-1,000 mg Oral cap daily [Active]; 21:23 Fosamax Oral [Active]; Tylenol #3 Oral [Active]; ferrous gluconate 324 mg (38 mg iron) tl2 oral tab [Active]; - PMHx: 21:03 Angina; Depression; Hyperlipidemia; Hypertension; polymyalgia rheumatica; Rheumatoid tl2 Arthritis; Sleep Apnea; Anxiety; Myocardial infarction; - Immunization history:: Adult Immunizations up to date. - Social history:: Smoking status: Patient/guardian denies using tobacco. - Family history:: not pertinent. Screenin:05 Abuse screen: Denies threats or abuse. Nutritional screening: No deficits noted. tl2 Tuberculosis screening: No symptoms or risk factors identified. Fall Risk None identified. Assessment: 21:21 General: see triage assessment. tl2 22:37 Reassessment: Patient appears in no apparent distress at this time. No changes from tl2 previously documented assessment. Patient and/or family updated on plan of care and expected duration. Pain level reassessed. Patient is alert, oriented x 3, equal unlabored respirations, skin warm/dry/pink. awaiting lab results. 23:48 Reassessment: Patient appears in no apparent distress at this time. Patient and/or tl2 family updated on plan of care and expected duration. Pain level reassessed. Patient is alert, oriented x 3, equal unlabored respirations, skin warm/dry/pink. Pt and family verbalized understanding of discharge instructions, need for follow up and prescription usage Patient states feeling better. Vital Signs: 21:03 BP 134 / 70; Pulse 97; Resp 18; Temp 98.1(O); Pulse Ox 94% on R/A; Weight 72.57 kg; tl2 Height 5 ft. 7 in. (170.18 cm); Pain 0/10; 22:37 BP 142 / 78; Pulse 81; Resp 18; Pulse Ox 97% on R/A; tl2 23:48 BP 136 / 68; Pulse 90; Resp 18; Pulse Ox 97% on R/A; tl2 21:03 Body Mass Index 25.06 (72.57 kg, 170.18 cm) tl2 ED Course: 20:55 Patient arrived in ED. am2 20:55 Jose E Horton MD is Private Physician. am2 20:58 Glenis Sanchez, OLIVIA is Primary Nurse. tl2 21:00 Triage completed. tl2 21:03 Arm band placed on right wrist. tl2 21:05 Patient has correct armband on for positive identification. Bed in low position. Call tl2 light in reach. Side rails up X2. Adult w/ patient. 21:05 Maintain EMS IV. Dressing intact. Good blood return noted. Site clean \T\ dry. Gauge \T\ tl 2 site: 20 g L AC. 21:33 Gerson Mariscal MD is Attending Physician. jeff 22:03 X-ray completed. Portable x-ray completed in exam room. Patient tolerated procedure sw well. 22:05 XRAY Chest (1 view) In Process Unspecified. EDMS 23:15 Jose E Horton MD is Referral Physician. jeff 23:48 No provider procedures requiring assistance completed. IV discontinued, intact, tl2 bleeding controlled, No redness/swelling at site. Pressure dressing applied. Administered Medications: 22:12 Drug: NS 0.9% 500 ml Route: IV; Rate: bolus; Site: left antecubital; tl2 23:51 Follow up: IV Status: Completed infusion; IV Intake: 500ml tl2 23:40 Drug: Potassium Chloride 20 mEq Route: PO; tl2 23:51 Follow up: Response: No adverse reaction tl2 Point of Care Testing: Blood Glucose: 21:03 Blood Glucose: 113 mg/dL; tl2 Ranges: Intake: 23:51 IV: 500ml; Total: 500ml. tl2 Outcome: 23:16 Discharge ordered by . [facility] 23:48 Discharged to home via wheelchair, with family. tl2 23:48 Condition: stable 23:48 Discharge instructions given to patient, family, Instructed on discharge instructions, follow up and referral plans. medication usage, Demonstrated understanding of instructions, follow-up care, medications, Prescriptions given X 1. 23:51 Patient left the ED. tl2 Signatures: Dispatcher [employer] EDMS Gerson Mariscal MD MD cha Warren, Shannon sw Knox, Taylor, RN RN tl2 Jenny Sprague am2
--- NOTE | 2017-12-03 23:17 | EDPHYS ---
Physician Documentation [facility] Name: Francisco Pagan Age: 82 yrs Sex: Male : 1935 Arrival Date: 12/03/2017 Time: 20:55 Bed 5 Private MD: Jose E Horton T ED Physician Gerson Mariscal HPI: 12/03 21:42 This 82 yrs old Male presents to ER via EMS with complaints of Anxiety. jeff 21:42 no pain , anxious all day. Onset: The symptoms/episode began/occurred 1 day(s) ago. jeff Severity of symptoms: At their worst the symptoms were mild in the emergency department the symptoms have resolved and did so just prior to arrival. The patient has not experienced similar symptoms in the past. Historical: - Allergies: 21:03 Latex, Natural Rubber; tl2 21:03 PENICILLINS; tl2 21:03 Rifampin; tl2 21:03 Sulfa (Sulfonamide Antibiotics); tl2 - Home Meds: 21:03 aspirin 81 mg Oral chew 1 tab once daily [Active]; Ativan 0.25 mg Oral once daily tl2 [Active]; citalopram 20 mg tab 1 tab once daily [Active]; prednisone 15 mg Oral tab once daily [Active]; Metoprolol Tartrate Oral [Active]; Abilify oral oral [Active]; Lipitor Oral [Active]; Fish Oil 300-1,000 mg Oral cap daily [Active]; 21:23 Fosamax Oral [Active]; Tylenol #3 Oral [Active]; ferrous gluconate 324 mg (38 mg iron) tl2 oral tab [Active]; - PMHx: 21:03 Angina; Depression; Hyperlipidemia; Hypertension; polymyalgia rheumatica; Rheumatoid tl2 Arthritis; Sleep Apnea; Anxiety; Myocardial infarction; - Immunization history:: Adult Immunizations up to date. - Social history:: Smoking status: Patient/guardian denies using tobacco. - Family history:: not pertinent. ROS: 21:42 Constitutional: Negative for fever, chills, and weight loss, Eyes: Negative for injury, jeff pain, redness, and discharge, ENT: Negative for injury, pain, and discharge, Neck: Negative for injury, pain, and swelling, Cardiovascular: Negative for chest pain, palpitations, and edema, Respiratory: Negative for shortness of breath, cough, wheezing, and pleuritic chest pain, Abdomen/GI: Negative for abdominal pain, nausea, vomiting, diarrhea, and constipation, Back: Negative for injury and pain, : Negative for injury, bleeding, discharge, and swelling, MS/Extremity: Negative for injury and deformity, Skin: Negative for injury, rash, and discoloration, Neuro: Negative for headache, weakness, numbness, tingling, and seizure, Psych: Negative for depression, anxiety, suicide ideation, homicidal ideation, and hallucinations, Allergy/Immunology: Negative for hives, rash, and allergies, Endocrine: Negative for neck swelling, polydipsia, polyuria, polyphagia, and marked weight changes, Hematologic/Lymphatic: Negative for swollen nodes, abnormal bleeding, and unusual bruising. Exam: 21:42 Constitutional: This is a well developed, well nourished patient who is awake, alert, jeff and in no acute distress. Head/Face: Normocephalic, atraumatic. Eyes: Pupils equal round and reactive to light, extra-ocular motions intact. Lids and lashes normal. Conjunctiva and sclera are non-icteric and not injected. Cornea within normal limits. Periorbital areas with no swelling, redness, or edema. ENT: Nares patent. No nasal discharge, no septal abnormalities noted. Tympanic membranes are normal and external auditory canals are clear. Oropharynx with no redness, swelling, or masses, exudates, or evidence of obstruction, uvula midline. Mucous membranes moist. Neck: Trachea midline, no thyromegaly or masses palpated, and no cervical lymphadenopathy. Supple, full range of motion without nuchal rigidity, or vertebral point tenderness. No Meningismus. Chest/axilla: Normal chest wall appearance and motion. Nontender with no deformity. No lesions are appreciated. Cardiovascular: Regular rate and rhythm with a normal S1 and S2. No gallops, murmurs, or rubs. Normal PMI, no JVD. No pulse deficits. Respiratory: Lungs have equal breath sounds bilaterally, clear to auscultation and percussion. No rales, rhonchi or wheezes noted. No increased work of breathing, no retractions or nasal flaring. Abdomen/GI: Soft, non-tender, with normal bowel sounds. No distension or tympany. No guarding or rebound. No evidence of tenderness throughout. Back: No spinal tenderness. No costovertebral tenderness. Full range of motion. Male : Normal genitalia with no discharge or lesions. Skin: Warm, dry with normal turgor. Normal color with no rashes, no lesions, and no evidence of cellulitis. MS/ Extremity: Pulses equal, no cyanosis. Neurovascular intact. Full, normal range of motion. Neuro: Awake and alert, GCS 15, oriented to person, place, time, and situation. Cranial nerves II-XII grossly intact. Motor strength 5/5 in all extremities. Sensory grossly intact. Cerebellar exam normal. Normal gait. Psych: Awake, alert, with orientation to person, place and time. Behavior, mood, and affect are within normal limits. Vital Signs: 21:03 BP 134 / 70; Pulse 97; Resp 18; Temp 98.1(O); Pulse Ox 94% on R/A; Weight 72.57 kg; tl2 Height 5 ft. 7 in. (170.18 cm); Pain 0/10; 22:37 BP 142 / 78; Pulse 81; Resp 18; Pulse Ox 97% on R/A; tl2 23:48 BP 136 / 68; Pulse 90; Resp 18; Pulse Ox 97% on R/A; tl2 21:03 Body Mass Index 25.06 (72.57 kg, 170.18 cm) tl2 MDM: 21:33 Patient medically screened. [facility] 21:44 Data reviewed: vital signs, nurses notes, lab test result(s), EKG, radiologic studies, jeff plain films. 12/03 21:42 Order name: Basic Metabolic Panel; Complete Time: 23:[address] [facility] 12/03 21:42 Order name: BNP; Complete Time: 23:[address] [facility] 12/03 21:42 Order name: CBC with Diff [facility] 12/03 21:42 Order name: Ckmb; Complete Time: 23:[address] [facility] 12/03 21:42 Order name: CPK; Complete Time: 23:[address] [facility] 12/03 21:42 Order name: LFT's; Complete Time: 23:[address] [facility] 12/03 21:42 Order name: Magnesium; Complete Time: 23:[address] [facility] 12/03 21:42 Order name: PT-INR; Complete Time: 23:[address] [facility] 12/03 21:42 Order name: Ptt, Activated; Complete Time: 23:[address] [facility] 12/03 21:42 Order name: Troponin (emerg Dept Use Only); Complete Time: 23:[address] [facility] 12/03 21:42 Order name: Lipase; Complete Time: 23:[address] [facility] 12/03 21:42 Order name: Urine Culture [facility] 12/03 22:05 Order name: Urine Dipstick--Ancillary (enter results); Complete Time: 23:14 12/03 22:06 Order name: Manual Differential EDMS 12/03 21:42 Order name: XRAY Chest (1 view); Complete Time: 23:[address] [facility] 12/03 21:42 Order name: EKG; Complete Time: 21:[address] [facility] 12/03 21:42 Order name: Cardiac monitoring; Complete Time: 21:[address] [facility] 12/03 21:42 Order name: EKG - Nurse/Tech; Complete Time: 21:[address] [facility] 12/03 21:42 Order name: IV Saline Lock; Complete Time: 21:[address] [facility] 12/03 21:42 Order name: Labs collected and sent; Complete Time: 21:[address] [facility] 12/03 21:42 Order name: O2 Per Protocol; Complete Time: 21:[address] [facility] 12/03 21:42 Order name: O2 Sat Monitoring; Complete Time: 21:[address] [facility] 12/03 21:42 Order name: Urine Dipstick-Ancillary (obtain specimen); Complete Time: 23:[address] [facility] Administered Medications: 22:12 Drug: NS 0.9% 500 ml Route: IV; Rate: bolus; Site: left antecubital; tl2 23:51 Follow up: IV Status: Completed infusion; IV Intake: 500ml tl2 23:40 Drug: Potassium Chloride 20 mEq Route: PO; tl2 23:51 Follow up: Response: No adverse reaction tl2 Point of Care Testing: Blood Glucose: 21:03 Blood Glucose: 113 mg/dL; tl2 Ranges: Critical Glucose Levels:Adult <50 mg/dl or >400 mg/dl <40 mg/dl or >180 mg/dl Disposition: 12/03/17 23:16 Discharged to Home. Impression: Anxiety disorder, unspecified, Hypokalemia, Weakness. - Condition is Stable. - Discharge Instructions: Potassium Content of Foods, Weakness, Fatigue, Weakness, [id number], Generalized Anxiety Disorder, Hypokalemia. - Prescriptions for Xanax 0.25 mg Oral Tablet - take 1 tablet by ORAL route every 8 hours As needed; 20 tablet. - Medication Reconciliation Form, Thank You Letter, Antibiotic Education, Prescription Opioid Use form. - Follow up: Jose E Horton MD; When: 1 - 2 days; Reason: Recheck today's complaints, Continuance of care, Re-evaluation by your physician. - Problem is new. - Symptoms have improved. Signatures: Dispatcher [employer] EDGerson Stephenson MD MD cha Knox, Taylor, RN RN tl2 Corrections: (The following items were deleted from the chart) 23:17 23:16 12/03/2017 23:16 Discharged to Home. Impression: Anxiety disorder, unspecified; jeff Hypokalemia. Condition is Stable. Forms are Medication Reconciliation Form, Thank You Letter, Antibiotic Education, Prescription Opioid Use. Follow up: Jose E Horton; When: 1 - 2 days; Reason: Recheck today's complaints, Continuance of care, Re-evaluation by your physician. Problem is new. Symptoms have improved. jeff 23:51 23:17 12/03/2017 23:16 Discharged to Home. Impression: Anxiety disorder, unspecified; tl2 Hypokalemia; Weakness. Condition is Stable. Forms are Medication Reconciliation Form, Thank You Letter, Antibiotic Education, Prescription Opioid Use. Follow up: Jose E Horton; When: 1 - 2 days; Reason: Recheck today's complaints, Continuance of care, Re-evaluation by your physician. Problem is new. Symptoms have improved. jeff
[2017-12-03 23:20] LABS: Blood Morphology Comment NOT SEEN (NOT SEEN); Platelet Estimate ADEQ
[2017-12-03] MEDS ORDERED: POTASSIUM CL SA 10 MEQ TAB PO ONE (23:20)
[2017-12-03 23:58] VITALS: TEMP 98.1
[2017-12-03 23:59] VITALS: O2SAT 97
[2017-12-04 00:31] VITALS: BP 136/68
--- NOTE | 2017-12-04 06:26 | EKG ---
Test Date: 2017-12-03 Test Time: 21:49:38 Table Hand: DONALD MEASUREMENT RESULTS: Intervals: Rate: 90 MT: 134 QRSD: 70 QT: 368 QTc: 450 Alvin: P: 37 MT: 134 QRS: -8 T: 47 INTERPRETIVE STATEMENTS: Normal sinus rhythm Voltage criteria for left ventricular hypertrophy Nonspecific T wave abnormality Abnormal ECG Compared to ECG 03/24/2016 14:38:43 Left ventricular hypertrophy now present T-wave abnormality now present Electronically Signed On 12-04-17 06:25:36 CDT by Jayden Lea
== END 2017-12-03 23:51 | disposition home or self-care (01) ==
LOC: ER 20:53
DX: E87.6 Hypokalemia (principal); R53.1 Weakness; I10 Essential (primary) hypertension; E78.5 Hyperlipidemia, unspecified; F32.9 Major depressive disorder, single episode, unspecified; Z79.82 Long term (current) use of aspirin; Z88.0 Allergy status to penicillin; Z88.1 Allergy status to other antibiotic agents; Z88.2 Allergy status to sulfonamides; Z91.040 Latex allergy status
CPT/HCPCS: 36415; 71045; 80048; 80076; 81003; 82550; 82553; 83690; 83735; 83880; 84484; 85025; 85610; 85730; 87086; 87088; 93005; 96360; 96361; 99284